=== PATIENT | male | born 1950 | race Caucasian/White ===

== ENCOUNTER 2021-06-11 10:49 | Emergency (ER) | payer MEDICARE ==
[~2021-06-11] VITALS: Ht 175.3 cm; Wt 76.2 kg
[2021-06-11 10:54] VITALS: BP 146/82
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
[2021-06-11] MEDS ORDERED: ACETAMINOPHEN ES 500 MG TABLET ONE (11:13)
[2021-06-11] MEDS: ACETAMINOPHEN ES 500 MG TABLET PO ONE (11:14)
--- NOTE | 2021-06-11 11:28 | NUR ---
SIGNALS ANALYST AT PT'S BEDSIDE
[2021-06-11] MEDS ORDERED: HYDR-4303 PO (12:48)
--- NOTE | 2021-06-11 12:57 | NUR ---
Patient discharged to home in stable condition. Written and verbal after care instructions given. Patient verbalizes understanding of instruction.
== END 2021-06-11 13:00 | disposition home or self-care (01) ==
LOC: ER 10:52
DX: S39.012A Strain of muscle, fascia and tendon of lower back, initial encounter (principal); S80.01XA Contusion of right knee, initial encounter; V43.12XA Car passenger injured in collision with other type car in nontraffic accident, initial encounter; Y93.89 Activity, other specified; Y92.410 Unspecified street and highway as the place of occurrence of the external cause; Y99.8 Other external cause status
CPT/HCPCS: 72110-TC; 73564-TC